=== PATIENT | male | born 1965 | race Caucasian/White ===

== ENCOUNTER 2022-12-30 13:14 | Outpatient (CLI) | payer BC, SELFPAY ==
--- NOTE | 2022-12-30 13:00 | RT.EKG_ITS ---
APPROVED REPORT Exam: Resting ECG Reason for Exam: Chest discomfort Patient Location: O HR:65 bpm ECG Measurements Heart Rate 65 AXIS MA 186 P 72 QRSd 97 QRS 63 QT 396 T 47 QTc 412 Conclusion Sinus rhythm...normal P axis, V-rate 50- 99 Probable left atrial enlargement...P >50mS, <-0.10mV V1 RSR' in V1 or V2, probably normal variant...small R' only
== END 2022-12-30 13:15 | disposition home or self-care (01) ==
LOC: DI.CM 13:15
PROVIDERS: Visit Provider Physician Assistant
DX: R07.89 Other chest pain (principal)
CPT/HCPCS: 93010

== ENCOUNTER 2022-12-30 14:11 | Emergency (ER) | payer BC, SELFPAY ==
[2022-12-30] VITALS (42 sets, daily range): BP systolic 151–186; BP diastolic 89–101; PULSE 55–67; RESP 8–20; O2SAT 94–98
--- NOTE | 2022-12-30 14:15 | RT.EKG_ITS ---
APPROVED REPORT Exam: Resting ECG Reason for Exam: chest pain Patient Location: E HR:61 bpm ECG Measurements Heart Rate 61 AXIS LA 181 P 63 QRSd 91 QRS 51 QT 386 T 36 QTc 391 Conclusion Sinus rhythm...normal P axis, V-rate 60- 99 Physician: Rate 61, no significant ST elevation or depression, no STEMI, minimal J-point elevation le ss than a millimeter noted in V2. No reciprocal depressions.
--- NOTE | 2022-12-30 14:45 | DI.CT_ITS ---
Exam(s) CT THORAX CTA EXAM: CT THORAX CTA CLINICAL HISTORY: bilat arm pain heavy sensation, fhx of anyurism. TECHNIQUE: Imaging Protocol: Axial CT angiography was performed with multi-slice acquisition and mu lti-planar and/or 3D reconstructions. CONTRAST MATERIAL: Intravenous: Omnipaque 350 contrast volume:100 mL COMPARISON: No exams were available for comparison FINDINGS: Tracheobronchial tree: Patent where visualized. Pulmonary parenchyma: No consolidation or dominant measurable mass. No architectural distortion. Ther e is a triangular 3 mm nodule associated with the right minor fissure likely reflecting an intraparen chymal lymph node. Pulmonary Arteries: No evidence of filling defect to suggest pulmonary emboli. Mediastinum and Devora: No dominant adenopathy or fluid collection. The esophagus is unremarkable. Visualized thyroid gland: There is a 1.7 cm peripherally enhancing nodule in the left lobe. Nonemerg ent thyroid ultrasound is recommended for further evaluation. Pleura: No effusion or pneumothorax. Heart: The heart is not dilated. No coronary artery calcifications are seen. No pericardial effusion. Aorta: Thoracic aorta non-dilated. No evidence of dissection. The visualized portions of the subclavi an axillary arteries are unremarkable. Upper abdomen: Unremarkable. Soft tissues: Mild gynecomastia. Bones: Within normal limits for the patient's age. IMPRESSION: 1. No evidence of pulmonary embolism, thoracic aortic dissection or aneurysm. 2. Left thyroid nodule. Nonemergent thyroid ultrasound is recommended. 3. Triangular 3 mm nodule associated with the right minor fissure. For low risk patients, no routine follow-up is recommended. For high risk patients, (history of smoking or other known risk factors), optional CT scan in 12 months may be obtained. (Clyde et al, 2017). Unexpected findings RADIATION DOSE DELIVERED: 509.96mGy.cm Total DLP 509.96mGy.cm Total DLP DATA REPOSITORY: All CT scans at this facility are submitted to the National Radiology Data Registry (NRDR) Dose Index Registry (DIR) with the [employer] (ACR). RADIATION OPTIMIZATION: All CT scans at this facility use at least one of these dose optimization te chniques: automated exposure control; mA and/or kV adjustment per patient size (includes targeted exa ms where dose is matched to clinical indication); or iterative reconstruction.
[2022-12-30 14:54] LABS: Abs Immature Grans 0.01 10^3/uL (0.0-0.06); Absolute Basophil Count 0.05 10^3/uL (0.0-0.2); Absolute Eosinophil Count 0.17 10^3/uL (0.0-0.7); Absolute Lymphocyte Count 1.44 10^3/uL (1.2-3.4); Absolute Monocyte Count 0.63 10^3/uL (0.1-0.8); Absolute Neutrophil Count 3.76 10^3/uL (1.2-6.7); Basophils % 0.8; Eosinophils % 2.8; HCT 44.3 % (40.0-50.0); HGB 15.6 g/dL (13.5-17.5); Immature Grans % 0.2; Lymphocytes % 23.8; MCHC 35.2 % (32.0-36.0); MCV 91 fL (80-95); Monocytes % 10.4; Platelet Count 195 10^3/uL (130-400); RBC 4.87 10^6/uL (4.36-5.78); RDW 12.3 % (11.8-14.1); RDW-SD 40.9 fL; WBC 6.06 10^3/uL (4.4-10.8)
--- NOTE | 2022-12-30 15:04 | W.ED.GENAD ---
Discharge Plan Discharge Details Chief Complaint: GenMedical Primary Care Provider: Unknown,Unknown ED Provider: Pradeep Turk Home Meds and New Rx's Prescriptions: No Action hydrocodone-acetaminophen 5-300 mg tablet 1 tab PO BID PRN red yeast rice 600 mg Tablet 1,200 mg PO DAILY multivitamin Tablet 1 tab PO DAILY naproxen sodium [Aleve] 220 mg Tablet 440 mg PO PRN PRN Medical Decision Making 57-year-old male with a past medical history of high cholesterol, intermittent hypertension with a family history of aortic aneurysm, brain aneurysm, and ischemic heart disease from both his mother and father, presents today for evaluation of arm heaviness sensation and high blood pressure. He states that has been present for the last 2 days. He describes a sensation as an arm heaviness going from his shoulders down towards his hands. Slightly tingly in his fingertips. He denies any falls or trauma. He denies any exertional component. It is not improved with rest or activity. He denies any chest symptoms whatsoever. He denies any chest pain, tearing or ripping sensation, chest heaviness or shortness of breath. On Wednesday which was 4 days ago he did an 8 mile hike [place] and had no unexpected shortness of breath or other symptoms noted. He did go to an urgent care earlier today, and after evaluation there he was recommended to come to the ER for further assessment. He has been noticing over the last 2 days that his blood pressure has also been notably elevated compared to normal. He denies any other complaints. No other modifying factors. Physical exam demonstrates well-appearing male, no signs of significant distress, he is mildly hypertensive. Radial pulses equal, good brisk capillary refill, normal movement strength and sensation for all upper extremities. Patient may certainly be having a hypertensive component that could be causing his symptoms, however cardiac etiology is of concern. EKG shows no evidence of STEMI. The patient's symptoms are concerning to for aneurysm especially with his family history. We will give 1 nitroglycerin, aspirin, get a CTA, monitor closely and reassess. He states he has no pain at all right now and does not want anything for pain. Patient will be signed out to my colleague Dr. Rojas for follow-up on labs and imaging. EKG 14: 21 Rate 61, no significant ST elevation or depression, no STEMI, minimal J-point elevation less than a millimeter noted in V2. No reciprocal depressions. HPI General Date/Time Provider Initiated Documentation: 12/30/22 14:14. HPI Narrative: 57-year-old male with a past medical history of high cholesterol, intermittent hypertension with a family history of aortic aneurysm, brain aneurysm, and ischemic heart disease from both his mother and father, presents today for evaluation of arm heaviness sensation and high blood pressure. He states that has been present for the last 2 days. He describes a sensation as an arm heaviness going from his shoulders down towards his hands. Slightly tingly in his fingertips. He denies any falls or trauma. He denies any exertional component. It is not improved with rest or activity. He denies any chest symptoms whatsoever. He denies any chest pain, tearing or ripping sensation, chest heaviness or shortness of breath. On Wednesday which was 4 days ago he did an 8 mile hike [place] mountain and had no unexpected shortness of breath or other symptoms noted. He did go to an urgent care earlier today, and after evaluation there he was recommended to come to the ER for further assessment. He has been noticing over the last 2 days that his blood pressure has also been notably elevated compared to normal. He denies any other complaints. No other modifying factors. Related Data Home Medications Medication Instructions Recorded Confirmed hydrocodone 5 mg-acetaminophen 300 1 tab PO BID PRN 12/30/22 12/30/22 mg tablet multivitamin 1 tab PO DAILY 12/30/22 12/30/22 naproxen sodium 220 mg tablet 440 mg PO PRN PRN 12/30/22 12/30/22 (Aleve) red yeast rice 600 mg tablet 1,200 mg PO DAILY 12/30/22 12/30/22 Allergies Allergy/AdvReac Type Severity Reaction Status Date / Time Penicillins Allergy Verified 12/30/22 14:21 General Stated Complaint: GenMedical KURTIS: 3 Review of Systems All systems reviewed & are unremarkable except as noted in HPI and below PFSH Social History Smoking/Tobacco Use Status: Never Smoking risk assessment performed?: Yes Alcohol Intake: never Substance use type: does not use Do you feel safe at home: Yes Do you feel safe in your relationship?: Yes Exam Narrative Exam Narrative: 1.Const: Well-nourished, Well-developed, appearing stated age 2.Eyes: PERRL, no conjunctival injection, and symmetrical lids. 3.ENT: Atraumatic external nose and ears. Moist MM. Neck: Symmetric, trachea midline, No thyromegaly. 4.CVS: +S1/S2, No murmurs or gallops. Peripheral pulses 2+ and equal in all extremities. Brisk capillary refill in all extremities. 5.RESP: Unlabored respiratory effort. Clear to auscultation bilaterally. No wheezes rales or rhonchi 6.GI: Soft, Nontender/Nondistended, No hepatosplenomegaly. No guarding or rebound. 7.MSK: Normocephalic/Atraumatic, Extremities w/o deformity or ttp No cyanosis or clubbing, Normal movement of all extremities 8.Skin: Warm, Dry. No rashes or lesions. 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 Sensation grossly intact, no focal neurologic deficits. 10.Psych: (AAO) x3. Appropriate mood and affect Course Vital Signs Vital signs: Vital Signs Pulse 67 12/30/22 14:18 Respiratory Rate 18 12/30/22 14:18 Blood Pressure 186/99 H 12/30/22 14:18 Pulse Oximetry 97 12/30/22 14:18 Pulse 67 12/30/22 14:18 Respiratory Rate 20 12/30/22 14:31 Respiratory Effort Normal, Non-Labored 12/30/22 14:31 Respiratory Depth Normal 12/30/22 14:31 Respiratory Pattern Normal 12/30/22 14:31 Blood Pressure 186/99 H 12/30/22 14:18 Blood Pressure Position Supine 12/30/22 14:18 Pulse Oximetry 97 12/30/22 14:18 Oxygen Delivery Method Room Air 12/30/22 14:18 Oxygen Flow Rate 0 12/30/22 14:18 Pain Level 0 12/30/22 14:18 Lab/Test Results Lab/Test Results: Laboratory Tests Range/Units 12/30/22 14:45 WBC (4.4-10.8) 10^3/uL 6.06 RBC (4.36-5.78) 10^6/uL 4.87 Hgb (13.5-17.5) g/dL 15.6 Hct (40.0-50.0) % 44.3 MCV (80-95) fL 91 MCH (27.0-33.0) pg 32.0 MCHC (32.0-36.0) % 35.2 RDW (11.8-14.1) % 12.3 Plt Count (130-400) 10^3/uL 195 MPV (8.0-11.0) fL 10.0 Immature Gran % 0.2 Neutrophils % 62.0 Lymphocytes % 23.8 Monocytes % 10.4 Eosinophils % 2.8 Basophils % 0.8 Nucleated RBC % (0.0-0.3) % 0.0 Absolute Neutrophils (1.2-6.7) 10^3/uL 3.76 Absolute Lymphocytes (1.2-3.4) 10^3/uL 1.44 Absolute Monocytes (0.1-0.8) 10^3/uL 0.63 Absolute Eosinophils (0.0-0.7) 10^3/uL 0.17 Absolute Basophils (0.0-0.2) 10^3/uL 0.05
[2022-12-30 15:25] LABS: ALT 29 U/L (16-63); AST 21 U/L (15-37); Albumin 3.6 g/dL (3.4-5.0); Alkaline Phosphatase 101 U/L (46-116); Anion Gap 6.7 mmol/L (3-11); BUN 18 mg/dL (7-18); Bilirubin, Total 0.4 mg/dL (0.2-1.0); CO2 28.3 mmol/L (21.0-32.0); CREATININE 1.1 mg/dL (0.70-1.30); Chloride 106 mmol/L (98-107); Estimated GFR 77.81 (mL/min/1.73m2); Glucose 107 mg/dL (74-106); Potassium 3.8 mmol/L (3.5-5.1); Sodium 141 mmol/L (136-145); Troponin I < 50 ng/L (<or=60)
[2022-12-30] MEDS: Normal Saline - Diluent 50 ML VIAL IJ (15:59)
[2022-12-30] MEDS: Omnipaque 350 MG/ML 100 ML BTL IJ (16:00)
[2022-12-30] MEDS: nitroGLYcerin 0.4 MG TAB SL (16:20)
[2022-12-30] MEDS: Aspirin 81 MG CHEW 324 MG CH (16:20)
--- NOTE | 2022-12-30 17:05 | DI.VRAD_ITS ---
PROCEDURE INFORMATION: Exam: CTA Chest With Contrast Exam date and time: 12/30/2022 4:01 PM Age: 57 years old Clinical indication: Other: Bilat arm pain and heavy sensation, fhx of aneurysm.No history of trauma or recent surgery is provided. TECHNIQUE: Imaging protocol: Computed tomographic angiography of the chest with contrast. Exam focused on the arteries. 1695image(s) are provided. 3D rendering (Not supervised by radiologist): MIP and/or 3D reconstructed images were created by the technologist. Contrast material: 350; Contrast volume: 100 ml; Contrast route: INTRAVENOUS (IV); Other technique: Axial images are available with sagittal and coronal reconstruction views. Automated dose exposure control is utilized. The DLP is 510.0. COMPARISON: No relevant prior chest studies are currently available. FINDINGS: Pulmonary arteries: No large central pulmonary arterial filling defect is appreciated with limited otherwise segmental evaluation with the arterial bolus. Aorta: No thoracic aortic aneurysmal dilatation or intimal irregularity is appreciated. Other arteries: The right vertebral artery appears developmentally dominant with smaller minuscule overall appearance on the left. Subclavian and axillary overall luminal contrast is present indicative of overall patency. There is some venous contrast streak artifact limitation on the right otherwise of the arm level. Thyroid: There is some heterogeneity as well as some nodularity about the left thyroid lobe with some questionable wall enhancement for example measuring approximately 2 x 1.2 cm as well as smaller adjacent. Trachea: The central airways are patent. There is some esophageal air averaging of the elvi and could also be seen with some developmental minimal accessory bronchus or minimal diverticulum. Lungs: There is some ground-glass nodularity including 3 mm right subpleural upper lobe series 5, image 154 although could also represent some postinflammatory related scarring. No lobar consolidation is appreciated. There is also some patchy subpleural ground-glass attenuation for example including left apex subpleural series 5, image 163 3 mm. There is also some fissure thickening for example 3 x 5 mm series 5, image 344 on the right. For patients at low risk (minimal or absent history of smoking and of other known risk factors), no routine follow-up is indicated. For patients at high risk (history of smoking or of other known risk factors), consider optional CT Chest at 12 months. (Reference: Luis A) References: Luis A Bustamante et al. Guidelines for Management of Incidental Pulmonary Nodules Detected on CT Images: From the Fleischner Society 2017. Radiology. 2017;284(1):228-243. Pleural spaces: No pneumothorax or pleural effusion is appreciated. Heart: No cardiac chamber enlargement or significant pericardial effusion is appreciated. Lymph nodes: There are subcentimeter predominant mediastinal and hilar lymph nodes overall present. Liver: There appears to be some marginal hepatic steatosis. Adrenal glands: The adrenal glands appear unremarkable overall as included. Stomach and bowel: There is a small sliding-type hiatal hernia demonstrated with slight gastroesophageal fold thickening. Intraperitoneal space: There is an otherwise unremarkable appearance of the included intraperitoneal space, upper abdominal structures. Bones/joints: Osseous alignment is maintained.No displaced fracture or dislocation is appreciated. There is some degeneration of the lower cervical spine with spurring and disc space narrowing overall. There is some slight thoracic spondylosis present. Soft tissues: No radiopaque foreign body or subcutaneous emphysema is appreciated. Other findings: There is some motion artifact present. IMPRESSION: 1. No thoracic aortic aneurysmal dilatation or intimal irregularity is appreciated. 2. Thoracic aortic branch vessel contrast is demonstrated including of the subclavian and axillary included clinical areas of question indicative of overall patency. 3. There is some thyroid heterogeneity as well as some asymmetric nodularity demonstrated more so on the left. Consider correlation with thyroid function studies. Thyroid ultrasound is recommended. Dictated and Authenticated by: Aj Parkinson MD. Ordering:JOSH Fernández MD
--- NOTE | 2022-12-30 17:14 | W.EDPROG ---
Date of service: 12/30/22 Time of Service: 17:15 Medical Decision Making pt signed out to me pending delta troponin and cta results which do not show concerning findings other than thyroid nodules, tsh unremarkable, will need outpatient f/u u/s of this. He feels well and has no symptoms now. He is hypertensive to 160/97 and he states his pcp was thinking about starting him on a bp med at his visit last week, would like to start something today. His resting heart rate is 50-65 so will start lisinopril over metoprolol. He is stable for d/c, will f/u with his pcp, return precautions given. Imaging Data Radiologic Study: Attestation: I personally reviewed and interpreted this imaging study as follows: Imaging: CT Scan Radiologist's impression: PRESSION: 1. No thoracic aortic aneurysmal dilatation or intimal irregularity is appreciated. 2. Thoracic aortic branch vessel contrast is demonstrated including of the subclavian and axillary included clinical areas of question indicative of overall patency. 3. There is some thyroid heterogeneity as well as some asymmetric nodularity demonstrated more so on the left. Consider correlation with thyroid function studies. Thyroid ultrasound is recommended Lab Data Lab results reviewed: Yes I reviewed the patient's lab results. ECG Data Attestation: I personally reviewed and interpreted this ECG (s) as follows: Prior ECG tracings: available for review Interpretation: 2nd ekg shows sinus zack, rate of 53, no acute ischemic changes compared to the first Sign Out Sign Out Data: Sign Out Comment: Bilateral arm heaviness and achiness. Family history of aneurysms. Pending CT scan, double tropes, and reassessment. He was hypertensive as well. Last updated by Pradeep Turk DO at 12/30/22 15:21 Discharge Plan Disposition Patient Disposition: Home Condition: Stable Discharge Details Clinical Impression: Arm heaviness Primary Care Provider: Unknown,Unknown ED Provider: Kike Rojas Home Meds and New Rx's Prescriptions: New lisinopril 10 mg tablet 10 mg PO DAILY Qty: 30 0RF Continued hydrocodone-acetaminophen 5-300 mg tablet 1 tab PO BID PRN red yeast rice 600 mg Tablet 1,200 mg PO DAILY multivitamin Tablet 1 tab PO DAILY naproxen sodium [Aleve] 220 mg Tablet 440 mg PO PRN PRN Discharge Instructions Additional Instructions: your blood work and cat scan did not show concerning findings of your aorta or heart, you did have thyroid nodules which your primary care provider should be made aware as you should have follow up ultrasound follow up with your primary care provider as soon as possible and discuss adjusting your lisinopril or changing to a different medication depending on well you are tolerating it If you feel more ill, have difficulty breathing or severe chest pain/pressure return to the emergency department
--- NOTE | 2022-12-30 17:15 | RT.EKG_ITS ---
APPROVED REPORT Exam: Resting ECG Reason for Exam: chest pain Patient Location: E HR:53 bpm ECG Measurements Heart Rate 53 AXIS NE 187 P 66 QRSd 86 QRS 54 QT 410 T 38 QTc 387 Conclusion Sinus bradycardia...rate< 60
[2022-12-30 17:57] LABS: Troponin I < 50 ng/L (<or=60)
[2022-12-30 18:03] LABS: TSH (W/Ref FT4) 0.72 uIU/mL (0.36-3.74)
== END 2022-12-30 18:50 | disposition home or self-care (01) ==
PROVIDERS: Student in an Organized Health Care Education/Training Program; Emergency Provider Emergency Medicine
DX: R29.898 Other symptoms and signs involving the musculoskeletal system (principal); R03.0 Elevated blood-pressure reading, without diagnosis of hypertension
CPT/HCPCS: 36415; 71275; 80053; 93005; 99285; 84443; 84484; 85025; 93010; 99284; J3490

== ENCOUNTER 2024-05-22 07:55 | Emergency (ER) | payer BC, SELFPAY ==
[2024-05-22 08:02] VITALS: BP 156/86; PULSE 75; RESP 16; TEMP 36.6; O2SAT 99
--- NOTE | 2024-05-22 08:15 | DI.RAD_ITS ---
Exam(s) XR ANKLE LT COMPLETE EXAM: XR ANKLE LT COMPLETE CLINICAL HISTORY: fall yesterday, twisted ankle, pain TECHNIQUE: 2D digital imaging was performed. Three views. COMPARISON: No exams were available for comparison FINDINGS: BONES: Mildly displaced oblique fracture seen through the lateral malleolus extending to the level of the ankle mortise. Additional fracture at the tip of the medial malleolus. No posterior malleolar fracture is seen. No bony destructive lesion is seen. JOINTS:The question minimal widening of the medial ankle mortise. SOFT TISSUE: Normal. IMPRESSION: Mildly displaced fracture of the lateral malleolus. Fracture at the tip of the medial malleolus. DATA REPOSITORY: RADIATION DOSE DELIVERED:
--- NOTE | 2024-05-22 08:28 | W.ED.GENAD ---
Discharge Plan Disposition Patient Disposition: Home Condition: Stable Discharge Details Clinical Impression: Closed left ankle fracture Primary Care Provider: Unknown,Unknown ED Provider: Osmin Lima Home Meds and New Rx's Prescriptions: Continued red yeast rice 600 mg Tablet 1,200 mg PO DAILY multivitamin Tablet 1 tab PO DAILY naproxen sodium [Aleve] 220 mg Tablet 440 mg PO PRN PRN losartan [Cozaar] 100 mg tablet 100 mg PO DAILY Discharge Instructions Instructions: Ankle Fracture ED Additional Instructions: Use orthopedic boot and crutches. Light weightbearing with crutch use. Keep your leg elevated is much as possible. Follow-up with orthopedics. You will be contacted to schedule an appointment. Please contact your primary care physician to arrange follow-up. Return to the ER immediately for any worsening or new concerning symptoms. Referrals: [facility] [Provider Group] [facility] General Mode of arrival: ambulatory. Date/Time Provider Initiated Documentation: 05/22/24 08:22. Limitations to Documentation: no limitations. Information obtained by: patient. History of Present Illness 59 year old M presents to the emergency department with the chief complaint of ankle pain, described as moderate, Quality is described as aching, and is localized to the left. Patient reports no radiation. Patient started experiencing this day(s) (1) and it has been constant. Movement worsens symptoms . Patient notes no other symptoms.. Patient did receive the following treatments prior to arrival, NSAID Related Data Home Medications ?Medication ?Instructions ?Recorded ?Confirmed multivitamin 1 tab PO DAILY 12/30/22 05/22/24 naproxen sodium 220 mg tablet 440 mg PO PRN PRN 12/30/22 05/22/24 (Aleve) red yeast rice 600 mg tablet 1,200 mg PO DAILY 12/30/22 05/22/24 losartan 100 mg tablet (Cozaar) 100 mg PO DAILY 05/22/24 05/22/24 Allergies Allergy/AdvReac Type Severity Reaction Status Date / Time penicillin G Allergy Unknown Other (See Unverified 05/22/24 07:59 Comment) General Stated Complaint: Orthopedic KURTIS: 3 Review of Systems Musculoskeletal Musculoskeletal: Reports as per HPI Exam Extrem Left lower extremity: ankle Details: tenderness Location: of the medial malleolus and pitting edema (distal lower leg and ankle swollen) and foot Details: normal capillary refill and vascular exam Details: dorsalis pedis pulse present; no tenderness Course Vital Signs Vital signs: Vital Signs Temperature 36.6 C 05/22/24 08:02 Pulse 75 05/22/24 08:02 Respiratory Rate 16 05/22/24 08:02 Blood Pressure 156/86 H 05/22/24 08:02 Pulse Oximetry 99 05/22/24 08:02 Temperature 36.6 C 05/22/24 08:02 Temperature Source Temporal Artery Scan 05/22/24 08:02 Pulse 75 05/22/24 08:02 Respiratory Rate 16 05/22/24 08:02 Respiratory Effort Normal, Non-Labored 05/22/24 08:06 Blood Pressure 156/86 H 05/22/24 08:02 Blood Pressure Position Sitting 05/22/24 08:02 Pulse Oximetry 99 05/22/24 08:02 Oxygen Delivery Method Room Air 05/22/24 08:02 Oxygen Flow Rate 0 05/22/24 08:02 Pain Level 10 05/22/24 08:02 Comment 2 Naproxen at 0530, using crutches, no pain at rest 05/22/24 08:02 Medical Decision Making 830 --59-year-old male here with left ankle injury. Patient notes he was hiking yesterday and sprained his ankle. No other injury sustained. He then had to walk 4 miles [place]. Ankle is swollen and painful. He has tenderness medial malleolus. Patient is neurovascular tact distally. Concern for fracture versus sprain. Plan to obtain x-ray imaging. 924 -- xray of the left ankle interpreted by radiology: Mildly displaced fracture of the lateral malleolus. Fracture at the tip of the medial malleolus. Case reviewed with Dr. Majano, he recommends boot, crutches and outpatient followup. Leg splinted with tall boot byt nursing. Usual and customary discharge instructions were reviewed. Quality:SDOH Health Related Social Needs: No Data to Display PFSH All Active Problems (Updated 05/22/24 @ 09:11 by Osmin Lima MD) Closed left ankle fracture (Acute) Social History Smoking/Tobacco Use Status: Never Smoking risk assessment performed?: Yes Alcohol Intake: current Alcohol Intake frequency: holidays/special occasions only Drug use: Never Substance use type: does not use Housing: house Do you feel safe at home: Yes Do you feel safe in your relationship?: Yes
[2024-05-22 09:35] VITALS: PULSE 66; RESP 16; O2SAT 100
== END 2024-05-22 09:51 | disposition home or self-care (01) ==
PROVIDERS: Emergency Provider Student in an Organized Health Care Education/Training Program
DX: S82.842A Displaced bimalleolar fracture of left lower leg, initial encounter for closed fracture (principal); W01.0XXA Fall on same level from slipping, tripping and stumbling without subsequent striking against object, initial encounter; Y93.01 Activity, walking, marching and hiking; Y92.838 Other recreation area as the place of occurrence of the external cause
CPT/HCPCS: 99283; 73610

== ENCOUNTER 2024-05-24 09:15 | Outpatient (CLI) | payer BC, SELFPAY ==
--- NOTE | 2024-05-24 09:00 | DI.RAD_ITS ---
Exam(s) XR ANKLE LT COMPLETE EXAM: XR ANKLE LT COMPLETE CLINICAL HISTORY: F/U FRACTURE TECHNIQUE: 2D digital imaging was performed. 4 views. COMPARISON: CR XR ANKLE LT COMPLETE from 05/22/2024 FINDINGS: Stable alignment lateral malleolar fracture. Stable alignment of fracture tip of medial malleolus. Stress views show mild widening of the medial ankle mortise. IMPRESSION: Stable fracture alignment. Medial ankle mortise widening. DATA REPOSITORY: RADIATION DOSE DELIVERED:
== END 2024-05-24 09:16 | disposition home or self-care (01) ==
LOC: DIORS 05-25 07:57
PROVIDERS: Visit Provider Student in an Organized Health Care Education/Training Program
DX: S82.892D Other fracture of left lower leg, subsequent encounter for closed fracture with routine healing (principal); X58.XXXD Exposure to other specified factors, subsequent encounter
CPT/HCPCS: 73610

== ENCOUNTER 2024-05-25 07:42 | Day surgery (SDC) | payer BC, SELFPAY ==
[2024-05-25] VITALS (26 sets, daily range): BP systolic 115–159; BP diastolic 67–89; PULSE 61–74; RESP 11–18; TEMP 36.6–36.9; O2SAT 90–98; BMI 28.2
--- NOTE | 2024-05-25 07:09 | PDOC.DSDIS_ITS ---
Date of service: 05/25/24 Time of Service: 14:00 Discharge Plan Disposition Patient Disposition: Home Condition: Stable Discharge Details Attending Provider: Soren Nagy Primary Care Provider: Unknown,Unknown Home Meds and New Rx's Prescriptions: New aspirin 81 mg tablet,delayed release (DR/EC) 81 mg PO DAILY 14 Days Qty: 14 0RF naproxen 250 mg tablet 250 - 500 mg PO BID PRN (Reason: Moderate pain) Qty: 40 0RF oxycodone 5 mg tablet 5 - 10 mg PO Q4H PRN (Reason: Moderate to severe pain) Qty: 18 0RF Continued red yeast rice 600 mg Tablet 1,200 mg PO DAILY multivitamin Tablet 1 tab PO DAILY naproxen sodium [Aleve] 220 mg Tablet 440 mg PO PRN PRN losartan [Cozaar] 100 mg tablet 100 mg PO DAILY No Action ibuprofen 200 mg capsule 200 mg PO TID-QID PRN Discharge Instructions Additional Instructions: Surgery: Left ankle and syndesmosis open reduction internal fixation Activity: Nonweightbearing right ankle with crutches. May rest splint gently on ground while standing. Recommend elevation to minimize swelling and discomfort. Wiggle toes to improve circulation and prevent stiffness. Physical therapy prescription will be provided on follow-up if needed. Prescriptions: Aspirin 81 mg take 1 daily to prevent a blood clot for 2 weeks Naproxen 250 mg take 1-2 every 12 hours with a meal as needed for moderate pain Oxycodone 5 mg take 1-2 every 4-6 hours as needed for severe pain You may use [id number] Tylenol (acetaminophen) as needed for mild pain. These pain medications may be taken all at once or in different combinations as needed. Also, recommend Colace (docusate) as a stool softener as surgery and pain medicine cause constipation. You may try [id number] diphenhydramine (Benadryl) 25-50 mg nightly as a sleep aid Dressings: Leave splint and dressing in place until follow-up. Keep clean and dry at all times. Follow-up: 10-[address] Nagy You may take off the leg compression stockings this evening at home. You may also leave them on a few days longer if you have a history of leg swelling or edema. Let us know right away if you develop any redness, drainage, fevers, chest pain, or trouble breathing. Do not drink alcohol or drive for at least 24 hours after anesthesia. Please call the office during business hours with any questions or concerns. Stand Alone Forms: Anesthesia Discharge Inst[facility] Aydee Wilks ([facility]) Referrals: Soren Nagy MD [ [facility] STAFF PHYSICIAN] - 06/06/24 11:00 am Discharge Orders Discharge Orders: Discharge Order (Routine); Ordered 05/25/24 Ordered By: Blaine Christina DS: Diagnosis Discharge Diagnosis (1) Closed left ankle fracture: Status: Acute (2) Syndesmotic disruption of left ankle: Status: Acute
--- NOTE | 2024-05-25 07:20 | ROE_ITS ---
Date of service: 05/25/24 Time of Service: 10:00 Operative Note Operative Note DATE OF PROCEDURE: 05/25/24 PRE-OP DIAGNOSIS: Left bimalleolar ankle fracture with syndesmotic disruption POST-OP DIAGNOSIS: same PROCEDURE: 1. Left bimalleolar ankle ORIF, medial and lateral: CPT #62990 2. Open treatment syndesmotic disruption, CPT # 05380 SURGEON: Soren Nagy FRONT END WEB DEVELOPER: Blaine Christina ANESTHESIA TYPE: Local By Surgeon and General LMA/ETT Refer to Anesthesia Record ESTIMATED BLOOD LOSS: 10 TOURNIQUET TIME: 0 COMPLICATIONS: None Patient was transported to: PACU Patient's condition: stable Implants: Synthes 8-hole 1/3 tubular plate with 3x distal 4.0mm cancellous screws, 3x proximal 3.5 mm cortex screws, and single 3.5 mm cortex lag screw Indications: Please see complete medical record for details. Findings: Moderately displaced distal fibula fracture with moderate lateral ankle instability. Moderately sized AITFL anterior distal fibula avulsion fragment. Tiny medial deltoid avulsion fragment with partial medial deltoid disruption. Procedure Description: In the operating room, general anesthesia was induced. The patient was positioned supine on the operating room table. All bony prominences were well- padded. Preoperative antibiotics were administered. The left ankle was prepped and draped in the usual sterile fashion. The correct patient, procedure, and side of the procedure were all verified prior to incision. The ankle was examined, preinjected with 0.25% bupivacaine containing epinephrine 30 cc along the direct lateral approach to the distal fibula and medial malleolus. The ankle demonstrated moderate lateral instability with near loss of tib-fib overlap and moderate widening of the medial clear space. There was a tiny medial malleolus avulsion fragment near the tip that was also somewhat near the medial gutter. The distal fibula was shortened and laterally translated. The direct lateral approach to the distal fibula was taken raising full-thickness flaps and exposing the fracture site and then extending proximally and distally as needed. The fracture ends were exposed, interposed tissue removed, and the proximal portion of the fracture well reduced with bone clamps. The separate moderately sized anterior component was clearly still attached to the anterior syndesmosis. It represented an AITFL avulsion fragment. It could be reduced to the reduced distal fibula and was clamped in place. The 2.5 mm drill was then used through the posterior margin of the distal fibula and suture tape used to secure this syndesmosis avulsion fragment passed through the bone tunnel and then wrapped around the bone piece with knots tied on the lateral distal fibula. This syndesmosis repaired avulsion fragment was stable through external rotation's testing after the suture repair. I lag screw was then drilled and placed from anterior to posterior just proximal to the syndesmosis fragment repair nicely securing the distal fibula main fracture segments. An appropriately length one third tubular plate was then selected and contoured to match the distal fibula anatomy, applied, confirmed using C arm, and then secured proximally with a 3.5 mm bicortical cortex screw. The 3 distal screw holes were then drilled just barely bicortically using fluoroscopic assistance and then filled using slightly shorter 4.0 mm cancellous screws. The remaining 2 holes in the plate were drilled and filled with bicortical 3.5 mm cortex screws with the most proximal screw directed obliquely to avoid stress riser and increase working length. AP, lateral, mortise fluoroscopic images were taken. There was excellent lateral fibula reduction, alignment of the distal tib-fib joint, and appropriate hardware placement. The medial clear spa ce could be slightly widened with external retracing stress testing and the small medial malleolus deltoid avulsion fragment could be seen. The decision was made to explore the medial side in case there was a more significant deltoid ligament injury or interposed tissue in the medial shoulder. A small curvilinear incision was made centered over the medial malleolus. Quite readily a small defect in the superficial tissue and moderate defect more distally could be found which led to the ankle joint and the tiny avulsion fragment was seen near its corresponding defect in the tip of the medial malleolus. This fragment was used to confirm medial tissue reduction, but then given its diminutive size removed with a rongeur, some moderate flipped interposed deeper medial deltoid tissue pulled out of the medial shoulder and then reduced and the deltoid ligament defect closed using 0 Vicryl [id number]-nd-iazni stitches nicely closing the tissue margins. Final fluoroscopic images confirmed excellent ankle joint alignment including negative stress testing of the medial clear space and syndesmosis. The medial and lateral wounds were copiously irrigated with normal saline. Deep tissue closed laterally nicely over the plate using 2-0 Monocryl. Subcutaneous tissue closed on both sides using 2-0 Monocryl buried interrupted. Skin closed on both sides using 3-0 nylon horizontal mattresses. Xeroform applied over both incisions followed by 4 x 4 gauze, sterile soft roll, and an AO short leg plaster splint was applied to the extremity. The patient awoke from anesthesia without complication and was transferred to the recovery room in a stable condition.
--- NOTE | 2024-05-25 07:20 | W.ANESPRE ---
General Info Date of Service Date Performed: 05/25/24 Height: 6 ft Weight: 94.347 kg Body Mass Index (BMI): 28.2 Surgical Procedure: Operation Date: 05/25/24 09:40 Proposed Procedure Side Surgeon p Ankle ORIF Left Soren Nagy MD Meds Allergies and Home Medications Allergies Allergy/AdvReac Type Severity Reaction Status Date / Time penicillin G Allergy Unknown as a child Verified 05/25/24 08:07 Home Medication ?Medication ?Instructions ?Recorded multivitamin 1 tab PO DAILY 12/30/22 naproxen sodium 220 mg tablet 440 mg PO PRN PRN 12/30/22 (Aleve) red yeast rice 600 mg tablet 1,200 mg PO DAILY 12/30/22 losartan 100 mg tablet (Cozaar) 100 mg PO DAILY 05/22/24 aspirin 81 mg tablet,delayed 81 mg PO DAILY Prevent blood clot 05/25/24 release 14 days #14 tabs ibuprofen 200 mg capsule 200 mg PO TID-QID PRN 05/25/24 naproxen 250 mg tablet 250 - 500 mg (1 - 2 x 250 mg) PO 05/25/24 BID PRN Moderate pain #40 tabs oxycodone 5 mg tablet 5 - 10 mg (1 - 2 x 5 mg) PO Q4H 05/25/24 PRN Moderate to severe pain #18 tabs Current Visit Medications: Current Medications Generic Name Dose Route Start Last Admin Trade Name Freq PRN Reason Stop Dose Admin Oxycodone HCl 0 mg 05/25/24 07:09 Oxycodone 5 Mg Tab PO 06/24/24 07:08 Q3H PRN PRN Pain PFSH Active Problems Active Problems: Problem Status Onset Code Syndesmotic disruption of left ankle Acute S93.432A Closed left ankle fracture Acute 05/22/24 S82.892A Medical History Medical History (Updated 05/24/24 @ 10:57 by Gus Stone) HTN (hypertension) Surgical History Surgical History (Updated 05/24/24 @ 10:57 by Gus Stone) Hx of cataract surgery Hx of knee surgery History of back surgery ruptured disc Tobacco Smoking/Tobacco Use Status: Former Tobacco Use Alcohol Alcohol Intake: current Alcohol intake frequency: holidays/special occasions only Substance Use Substance use: Never Substance use type: does not use Vital Signs and Lab Results Vital Signs Most Recent Vital Signs in EMR: Temp Pulse Resp BP Pulse Ox 36.9 C 66 17 149/89 H 98 05/25/24 07:48 05/25/24 07:48 05/25/24 07:48 05/25/24 07:48 05/25/24 07:48 Lab Results Blood Type / Crossmatch: No Data to Display Complete Blood Count: No Data to Display Complete Metabolic Panel: No Data to Display Liver Function Panel: No Data to Display Coagulation Panel: No Data to Display Cardiac Panel: No Data to Display Arterial Blood Gas: No Data to Display Venous Blood Gas: No Data to Display Pancreas Panel: No Data to Display Thyroid Panel: No Data to Display Infectious Disease: No Data to Display Blood Cultures: No Data to Display Toxicology Panel: No Data to Display Anesthesia Assessment and Plan Anesthesia History Personal History: No History of Anesthesia Complications Family History: No Family History of Anesthesia Complications Exercise Tolerance Exercise Tolerance: Metabolic Equivalents>4 Cardiac & Pulmonary Exam Cardiac Exam: Normal S1/S2 Heart Sounds Pulmonary Exam: Clear Bilateral Breath Sounds Implantable Cardiac Device Does patient have a Pacemaker or an ICD?: No Airway Exam Known Difficult Airway: No Mallampati Class: 3 Mouth Opening: Normal (> 3cm) Thyromental Distance: Less than 3 cm Neck Range of Motion: Full ROM Neck Circumference: Normal Teeth Condition: Normal Dentition ASA Classification ASA Score: ASA 2 Emergency Case?: No NPO Status NPO Status: NPO Clears >2 hours, Solids >8 hours Anesthesia Plan Resuscitation Status: Full Code Anesthesia Technique: General Anesthesia Airway Planned: Endotracheal Tube Monitors Used: Standard Monitors Preoperative Comments:: 59 yo male for ankle. Sig PMHx: HTN (losartan. Well controlled, does not check his BP at home), thyroid nodule (TSH WNL), back pain with associated left>right leg burning, numbness, former smoker, occ EtOH. EKG: sinus ashutosh. Discussed risks, benefits of regional anesthesia. Given his left leg numbness and burning and the potential for nerve injury associated with the block he is not interested in regional anesthesia.
[2024-05-25] MEDS: Lactated Ringers 1,000 ML 30 ML IV (08:34)
[2024-05-25] MEDS: ceFAZolin 2 GM/50 ML BAG IVPB (09:30)
[2024-05-25] MEDS: TRANEXAMIC ACID/SOD. CHL. 1,000 MG/100 ML BAG 600 MG IVPB (09:33)
[2024-05-25] MEDS: Bupivacaine 0.25% Pres-Free W/EPI 30 ML VIAL (10:04)
--- NOTE | 2024-05-25 11:27 | DI.RAD_ITS ---
Exam(s) XR ANKLE LT 2V EXAM: XR ANKLE LT 2V CLINICAL HISTORY: left ankle fracture. TECHNIQUE: 2D and realtime digital imaging was performed. COMPARISON: CR XR ANKLE LT COMPLETE from 05/24/2024 FINDINGS: Hard copy images show placement of a fixation plate along the lateral malleolus for fracture fixation . The alignment appears satisfactory. A stress view was performed which shows mild widening of the medial ankle mortise. Please see procedure note for details. Fluoro time: 20 pointseconds RADIATION DOSE DELIVERED: al Cherry=0.48 mGy
[2024-05-25] MEDS: HYDROmorphone 1 MG/ML SYR IVP ×2 (12:24→12:38)
--- NOTE | 2024-05-25 12:31 | W.ANESPOSTOP ---
Postoperative Evaluation Date, Time and Location Date Performed: 05/25/24 Time Performed: 12:31 Patient Location: PACU Vital Signs Most Recent Imported Vital Signs: Most Recent Vital Signs Temp Pulse Resp BP Pulse Ox 36.6 C 64 13 135/78 94 05/25/24 12:25 05/25/24 12:26 05/25/24 12:26 05/25/24 12:26 05/25/24 12:26 Pain Score Most Recent Pain Score: Most Recent Pain Score Pain Level 5 05/25/24 12:25 Assessment Mental Status: Awake (Alert & Oriented to Patient Baseline) Airway and Respiratory Function: Patent airway with normal (patient baseline) respiratory exam Cardiovascular Function: Hemodynamically Stable Hydration Status: Adequately Hydrated Nausea & Vomiting: No Nausea or Vomiting Pain: Pain is tolerable per patient Peripheral Nerve Block: Patient did not receive a nerve block
== END 2024-05-25 14:00 | disposition home or self-care (01) ==
LOC: SUR 07:43
PROVIDERS: Visit Provider Student in an Organized Health Care Education/Training Program
PROC: (CPT 27814; principal; 2024-05-25 09:30)
DX: S82.842A Displaced bimalleolar fracture of left lower leg, initial encounter for closed fracture (principal); S93.432A Sprain of tibiofibular ligament of left ankle, initial encounter; X50.1XXA Overexertion from prolonged static or awkward postures, initial encounter; Y93.01 Activity, walking, marching and hiking; I10 Essential (primary) hypertension; Z87.891 Personal history of nicotine dependence
CPT/HCPCS: 27814; 27829; 76000; 73600; C9290; J0131; J0665; J0690; J1100; J1171; J1885; J2250; J2405; J2704; J3475

== ENCOUNTER 2024-06-06 15:14 | Outpatient (CLI) | payer BC, SELFPAY ==
--- NOTE | 2024-06-06 11:00 | DI.RAD_ITS ---
Exam(s) XR ANKLE LT COMPLETE EXAM: XR ANKLE LT COMPLETE CLINICAL HISTORY: F/U FRACTURE TECHNIQUE: 2D digital imaging was performed. Three views. COMPARISON: CR XR ANKLE LT COMPLETE from 05/24/2024 XA XR ANKLE LT 2V from 05/25/2024 FINDINGS: BONES: No stable fracture and hardware alignment. No bony destructive lesion is seen. JOINTS:The ankle mortise is normally aligned. SOFT TISSUE: Normal. IMPRESSION: Stable fracture and hardware alignment. DATA REPOSITORY: RADIATION DOSE DELIVERED:
== END 2024-06-06 15:15 | disposition home or self-care (01) ==
LOC: DIORS 15:14
PROVIDERS: Visit Provider Student in an Organized Health Care Education/Training Program
DX: S93.432D Sprain of tibiofibular ligament of left ankle, subsequent encounter (principal); X58.XXXD Exposure to other specified factors, subsequent encounter
CPT/HCPCS: 73610

== ENCOUNTER 2024-07-11 15:11 | Outpatient (CLI) | payer BC, SELFPAY ==
--- NOTE | 2024-07-11 10:30 | DI.RAD_ITS ---
Exam(s) XR ANKLE LT COMPLETE EXAM: XR ANKLE LT COMPLETE CLINICAL HISTORY: F/U FRACTURE. TECHNIQUE: 2D digital imaging was performed. Three images were obtained. AP, lateral and oblique vi ews were obtained. COMPARISON: CR XR ANKLE LT COMPLETE from 06/06/2024 FINDINGS: BONES: There are stable post operative changes present. Portions of the distal fibular fracture line are still visualized. This is best appreciated on the lateral view. There is again seen a an osseo us density at the tip of the medial malleolus. This is unchanged. No new fracture is seen. No new fracture or dislocation. JOINTS: The joint spaces are well maintained. SOFT TISSUE: Normal. IMPRESSION: Stable postoperative changes. DATA REPOSITORY: RADIATION DOSE DELIVERED:
== END 2024-07-11 15:12 | disposition home or self-care (01) ==
LOC: DIORS 15:11
PROVIDERS: Visit Provider Student in an Organized Health Care Education/Training Program
DX: S93.432D Sprain of tibiofibular ligament of left ankle, subsequent encounter (principal); X58.XXXD Exposure to other specified factors, subsequent encounter
CPT/HCPCS: 73610

== ENCOUNTER 2024-08-22 15:52 | Outpatient (CLI) | payer BC, SELFPAY ==
--- NOTE | 2024-08-22 09:56 | DI.RAD_ITS ---
Exam(s) XR ANKLE LT COMPLETE EXAM: XR ANKLE LT COMPLETE CLINICAL HISTORY: F/U FRACTURE TECHNIQUE: 2D digital imaging was performed of the left ankle. Three images were obtained. AP, lat eral and oblique views were obtained. COMPARISON: CR XR ANKLE LT COMPLETE from 07/11/2024 FINDINGS: BONES: There are stable postsurgical changes of internal fixation of the distal fibular fracture. A portion of the fracture is still visualized on the lateral view posteriorly. The tiny densities at t he tip of the medial malleolus appears stable. No new fractures identified. No bony destructive les ion is seen. JOINTS:The ankle mortise is normally aligned. SOFT TISSUE: Normal. IMPRESSION: Stable appearance of the left ankle. DATA REPOSITORY: RADIATION DOSE DELIVERED:
== END 2024-08-22 15:53 | disposition home or self-care (01) ==
LOC: DIORS 15:52
PROVIDERS: Visit Provider Student in an Organized Health Care Education/Training Program
DX: S82.842D Displaced bimalleolar fracture of left lower leg, subsequent encounter for closed fracture with routine healing (principal); X58.XXXD Exposure to other specified factors, subsequent encounter
CPT/HCPCS: 73610

== ENCOUNTER 2024-11-21 08:16 | Outpatient (CLI) | payer BC, SELFPAY ==
--- NOTE | 2024-11-21 08:00 | DI.RAD_ITS ---
Exam(s) XR ANKLE LT COMPLETE EXAM: XR ANKLE LT COMPLETE CLINICAL HISTORY: F/U FRACTURE. TECHNIQUE: 2D digital imaging was performed. Three images were obtained. AP, lateral and oblique vi ews were obtained. COMPARISON: CR XR ANKLE LT COMPLETE from 08/22/2024 FINDINGS: BONES: There are stable post operative changes with internal fixation of the distal fibular fracture present. The fracture shows continuous healing. The fracture line is much less well visualized comp ared to the prior examination. No new fracture or dislocation. JOINTS: The joint spaces are well maintained. SOFT TISSUE: There is stable tiny densities at the tip of the medial malleolus. IMPRESSION: Healing left fibular fracture. DATA REPOSITORY: RADIATION DOSE DELIVERED:
== END 2024-11-21 08:17 | disposition home or self-care (01) ==
LOC: DIORS 08:17
PROVIDERS: Visit Provider Student in an Organized Health Care Education/Training Program
DX: S93.432A Sprain of tibiofibular ligament of left ankle, initial encounter (principal)
CPT/HCPCS: 73610

== ENCOUNTER 2025-03-30 09:00 | Outpatient (CLI) | payer BC, SELFPAY ==
[2025-03-30 12:56] LABS: Calculated LDL 107 mg/dL (<100); Cholesterol 177 mg/dL (<200); HDL Cholesterol 53 mg/dL (>or=40); Triglyceride 86 mg/dL (<150)
== END 2025-03-30 09:01 | disposition home or self-care (01) ==
LOC: LOS 09:00
PROVIDERS: Visit Provider Internal Medicine
DX: E78.2 Mixed hyperlipidemia (principal)
CPT/HCPCS: 36415; 80061